=== PATIENT | female | born 1935 | race African-American/Black ===

== ENCOUNTER 2019-06-08 12:16 | Emergency (ER) | payer MEDICARE, OTHER ==
[~2019-06-08] VITALS: Ht 167.6 cm; Wt 94.3 kg
[2019-06-08 12:21] VITALS: BP 158/74
--- NOTE | 2019-06-08 12:22 | NUR ---
ED Nurse Note:pt. was BIBA from home with c/o near syncopal episode and dizziness, no fall reported pt. has bradycardia on arrival, placed on night monitor
--- NOTE | 2019-06-08 12:52 | Emergency Room Report ---
History of Present Illness General Chief Complaint: Syncope Source: Patient, Medical Record Present Illness HPI 84-year-old female history of atrial fibrillation on anticoagulation presents with presyncopal-like symptoms, patient was found on the floor of her house, she felt very weak, no proceeding symptoms, no chest pain or shortness of breath , patient never lost consciousness however she felt lightheaded, unknown aggravating relieving factors severity was severe, symptoms lasted 30 minutes patient presents for evaluation Allergies: Coded Allergies: No Known Allergies (Unverified , 06/08/19) Patient History Past Medical History: see triage record Now: No Reviewed Nursing Documentation: PMH: Agreed; PSxH: Agreed Nursing Documentation-PMH Past Medical History: No History, Except For Hx Hypertension: Yes Review of Systems All Other Systems: negative except mentioned in HPI Physical Exam Vital Signs Date Time Temp Pulse Resp B/P (MAP) Pulse Ox O2 Delivery O2 Flow Rate FiO2 06/08/19 12:12 97.5 56 16 144/86 (105) 98 Room Air Sp02 EP Interpretation: reviewed, normal General Appearance: well appearing, no apparent distress, alert Head: normocephalic, atraumatic Eyes: bilateral eye PERRL, bilateral eye EOMI ENT: uvula midline, moist mucus membranes Neck: supple, thyroid normal, supple/symm/no masses Respiratory: lungs clear, no respiratory distress, no retraction, no accessory muscle use Cardiovascular #1: normal peripheral pulses, no edema, no gallop, no murmur, irregularly irregular Gastrointestinal: non tender, soft, no guarding, no rebound Musculoskeletal: normal inspection Neurologic: alert, oriented x3 Psychiatric: mood/affect normal Skin: no rash, warm/dry Medical Decision Making Diagnostic Impression: Primary Impression: Syncope Qualified Codes: R55 - Syncope and collapse ER Course 84-year-old female presents with syncope-like symptoms, patient was found down for 30 minutes, patient was unable to get up. differential diagnosis includes cardiogenic syncope, neurogenic, electrolyte abnormality Patient found to have a heart rate that would dip down to the 40s, Patient was accepted for transfer to [facility] Dr. Odell accepted 2:42pm Laboratory Tests Test 06/08/19 12:40 White Blood Count 3.9 K/UL (4.8-10.8) L Red Blood Count 4.58 M/UL (4.20-5.40) Hemoglobin 13.7 G/DL (12.0-16.0) Hematocrit 41.1 % (37.0-47.0) Mean Corpuscular Volume 90 FL (80-99) Mean Corpuscular Hemoglobin 29.9 PG (27.0-31.0) Mean Corpuscular Hemoglobin Concent 33.3 G/DL (32.0-36.0) Red Cell Distribution Width 12.7 % (11.6-14.8) Platelet Count 158 K/UL (150-450) Mean Platelet Volume 7.9 FL (6.5-10.1) Neutrophils (%) (Auto) 58.2 % (45.0-75.0) Lymphocytes (%) (Auto) 28.5 % (20.0-45.0) Monocytes (%) (Auto) 11.6 % (1.0-10.0) H Eosinophils (%) (Auto) 0.8 % (0.0-3.0) Basophils (%) (Auto) 1.0 % (0.0-2.0) Prothrombin Time 19.2 SEC (9.30-11.50) H Prothrombin Time INR 1.9 (0.9-1.1) H PTT 34 SEC (23-33) H Urine Color Pale yellow Urine Appearance Clear Urine pH 5 (4.5-8.0) Urine Specific [place] 1.010 (1.005-1.035) Urine Protein 3+ (NEGATIVE) H Urine Glucose (UA) Negative (NEGATIVE) Urine Ketones Negative (NEGATIVE) Urine Blood Negative (NEGATIVE) Urine Nitrite Negative (NEGATIVE) Urine Bilirubin Negative (NEGATIVE) Urine Urobilinogen Normal MG/DL (0.0-1.0) Urine Leukocyte Esterase Negative (NEGATIVE) Urine RBC 0-2 /HPF (0 - 2) Urine WBC 0-2 /HPF (0 - 2) Urine Squamous Epithelial Cells Occasional /LPF Urine Amorphous Sediment Few /LPF (NONE) H Urine Bacteria Occasional /HPF (NONE) Sodium Level 138 MMOL/L (136-145) Potassium Level 4.1 MMOL/L (3.5-5.1) Chloride Level 103 MMOL/L (98-107) Carbon Dioxide Level 26 MMOL/L (21-32) Anion Gap 9 mmol/L (5-15) Blood Urea Nitrogen 22 mg/dL (7-18) H Creatinine 2.0 MG/DL (0.55-1.30) H Estimate Glomerular Filtration Rate mL/min (>60) Glucose Level 91 MG/DL (74-106) Calcium Level 8.0 MG/DL (8.5-10.1) L Total Bilirubin 0.4 MG/DL (0.2-1.0) Aspartate Amino Transferase (AST) 22 U/L (15-37) Alanine Aminotransferase (ALT) 16 U/L (12-78) Alkaline Phosphatase 84 U/L (46-116) Troponin I 0.000 ng/mL (0.000-0.056) Pro-B-Type Natriuretic Peptide 1144 pg/mL (0-125) H Total Protein 7.1 G/DL (6.4-8.2) Albumin 3.5 G/DL (3.4-5.0) Globulin 3.6 g/dL Albumin/Globulin Ratio 1.0 (1.0-2.7) Lipase 142 U/L (73-393) Urine Opiates Screen Negative (NEGATIVE) Urine Barbiturates Screen Negative (NEGATIVE) Phencyclidine (PCP) Screen Negative (NEGATIVE) Urine Amphetamines Screen Negative (NEGATIVE) Urine Benzodiazepines Screen Negative (NEGATIVE) Urine Cocaine Screen Negative (NEGATIVE) Urine Marijuana (THC) Screen Negative (NEGATIVE) EKG Diagnostic Results EKG Time: 12:18 EP Interpretation: A. fib, rate 50, QTc 443, no acute ST elevations, left axis deviation Rhythm Strip Diag. Results Rhythm Strip Time: 12:52 EP Interpretation: yes Rate: 55 Rhythm: other - Atrial fibrillation Chest X-Ray Diagnostic Results Chest X-Ray Diagnostic Results : Chest X-Ray Ordered: Yes # of Views/Limited/Complete: 1 View Indication: Other - Syncope EP Interpretation: Yes Interpretation: no consolidation, no effusion, no pneumothorax, no acute cardiopulmonary disease Impression: No acute disease Electronically Signed by: Mingo Rodriguez MD CT/MRI/US Diagnostic Results CT/MRI/US Diagnostic Results : Impression Procedure: CT Head no Contrast Indication: Headache. Presyncope. Dizziness lightheadedness Technique: Contiguous 5 mm thick transaxial imaging of the head obtained in a Siemens Sensation [address] scanner. Soft tissue and bone windows generated. Automatic Exposure Control was utilized. Total Dose length Product (DLP): [address] Dose Index Volume (CTDIvol): 60 mGy Comparison: none Findings: There is mild prominence of the ventricles, basal cisterns, and cerebral sulci consistent with atrophy. Mild, nonspecific, white matter hypoattenuation is noted throughout the brain consistent with chronic small vessel disease. There is no midline shift, edema, acute hemorrhage, mass effect, or abnormal extra-axial fluid collections. Bones are unremarkable. Impression: No acute intracranial bleed, mass effect or edema. Mild atrophy of the brain. Nonspecific white matter hypoattenuation probably due to chronic small vessel disease. Note: Study is degraded by technical artifact The CT scanner at [facility] is accredited by the [employer] and the scans are performed using dose optimization techniques as appropriate to a performed exam including Automatic Exposure control. Dictated By: Rizwan Garner MD Electronically Signed By: Rizwan Garner MD Signed Date/Time 06/08/19 1340 CC: Mingo Rodriguez MD Last Vital Signs Date Time Temp Pulse Resp B/P (MAP) Pulse Ox O2 Delivery O2 Flow Rate FiO2 06/08/19 12:21 97.5 50 16 158/74 98 Room Air Disposition: XFER SHT-TRM [facility] Condition: Stable Mingo Rodriguez MD Jun 08, 2019 12:52
[2019-06-08 13:00] LABS: APPEARANCE,URINE CLEAR; BILIRUBIN, URINE NEGATIVE (NEGATIVE); COLOR,URINE PALE YELLOW; GLUCOSE, URINE (UA) NEGATIVE (NEGATIVE); KETONES,URINE NEGATIVE (NEGATIVE); LEUKOCYTE ESTERASE ,URINE NEGATIVE (NEGATIVE); NITRITE,URINE NEGATIVE (NEGATIVE); PH,URINE 5 (4.5-8.0); PROTEIN,URINE 3+ (NEGATIVE); UROBILINOGEN,URINE NORMAL MG/DL (0.0-1.0)
[2019-06-08 13:07] LABS: ANION GAP 9 mmol/L (5-15); BLOOD UREA NITROGEN 22 mg/dL (7-18); CARBON DIOXIDE 26 MMOL/L (21-32); CHLORIDE 103 MMOL/L (98-107); EOSINOPHILS % (AUTO) 0.8 % (0.0-3.0); HEMATOCRIT 41.1 % (37.0-47.0); HEMOGLOBIN 13.7 G/DL (12.0-16.0); LYMPHOCYTES % (AUTO) 28.5 % (20.0-45.0); MEAN CORPUSCULAR VOLUME 90 FL (80-99); MONOCYTES % (AUTO) 11.6 % (1.0-10.0); NEUTROPHILS % (AUTO) 58.2 % (45.0-75.0); PLATELET COUNT 158 K/UL (150-450); POTASSIUM 4.1 MMOL/L (3.5-5.1); RED BLOOD COUNT 4.58 M/UL (4.20-5.40); RED CELL DISTRIBUTION WIDTH 12.7 % (11.6-14.8); SODIUM 138 MMOL/L (136-145); WHITE BLOOD COUNT 3.9 K/UL (4.8-10.8)
[2019-06-08 13:11] LABS: INR 1.9 (0.9-1.1)
--- NOTE | 2019-06-08 13:12 | NUR ---
ED Nurse Note: Family member will bring medication list from home. Patient recalls that she is taking Synthroid, Losartan and mord meds.
--- NOTE | 2019-06-08 13:15 | NUR ---
ED Nurse Note: patient taken to CT.
[2019-06-08] MEDS ORDERED: LOSARTAN POTAS100 MG ORAL (13:20)
[2019-06-08] MEDS ORDERED: SYNTHROID100 MCG ORAL (13:20)
[2019-06-08] MEDS ORDERED: CALCIUM600 M1 PO (13:20)
[2019-06-08] MEDS ORDERED: WARFARIN SODIUM5 MG ORAL (13:20)
[2019-06-08] MEDS ORDERED: FLONASE1 SPRAYS NASAL (13:20)
[2019-06-08] MEDS ORDERED: MAGNESIUM OXID400 M1 ORAL (13:20)
[2019-06-08] MEDS ORDERED: AMLODIPINE BESY10 MG ORAL (13:20)
[2019-06-08] MEDS ORDERED: PRAVASTATIN SOD10 M1 ORAL (13:20)
[2019-06-08] MEDS ORDERED: CALCIUM 500 MG1 EAC2 PO (13:20)
[2019-06-08] MEDS ORDERED: SYMBICORT 1601 PUFFS INH (13:20)
[2019-06-08] MEDS ORDERED: HYDRALAZINE HC100 MG ORAL (13:20)
[2019-06-08 13:23] LABS: ALANINE AMINOTRANSFERASE 16 U/L (12-78); ALBUMIN 3.5 G/DL (3.4-5.0); ALKALINE PHOSPHATASE 84 U/L (46-116); ASPARTATE AMINO TRANSFERASE 22 U/L (15-37); BILIRUBIN,TOTAL 0.4 MG/DL (0.2-1.0)
--- NOTE | 2019-06-08 13:25 | NUR ---
ED Nurse Note: patient came back from CT scan.
--- NOTE | 2019-06-08 13:46 | Diagnostic Imaging Report ---
Indication: Headache. Presyncope. Dizziness lightheadedness Technique: Contiguous 5 mm thick transaxial imaging of the head obtained in a Siemens Sensation [address] scanner. Soft tissue and bone windows generated. Automatic Exposure Control was utilized. Total Dose length Product (DLP): [address] Dose Index Volume (CTDIvol): 60 mGy Comparison: none Findings: There is mild prominence of the ventricles, basal cisterns, and cerebral sulci consistent with atrophy. Mild, nonspecific, white matter hypoattenuation is noted throughout the brain consistent with chronic small vessel disease. There is no midline shift, edema, acute hemorrhage, mass effect, or abnormal extra-axial fluid collections. Bones are unremarkable. Impression: No acute intracranial bleed, mass effect or edema. Mild atrophy of the brain. Nonspecific white matter hypoattenuation probably due to chronic small vessel disease. Note: Study is degraded by technical artifact The CT scanner at [facility] is accredited by the [employer] and the scans are performed using dose optimization techniques as appropriate to a performed exam including Automatic Exposure control.
[2019-06-08] MEDS ORDERED: Metoclopramide 10mg/2ml Inj IVP ONE (14:30)
--- NOTE | 2019-06-08 14:31 | Diagnostic Imaging Report ---
Indication: Dyspnea Comparison: None A single view chest radiograph was obtained. Findings: No definite infiltrate or pulmonary vascular congestion identified. The heart is enlarged. The aorta is mildly enlarged consistent with atherosclerotic vascular disease. The bones are osteopenic. Impression: No acute disease
--- NOTE | 2019-06-08 15:12 | NUR ---
ED Nurse Note: report given to Amie RN, endorsed all plan of care to Amie RN.
[2019-06-08 15:14] VITALS: BP 150/83
--- NOTE | 2019-06-08 15:19 | NUR ---
HAND-OFF: Report given to Sunita HODGES. family at bedside. .
--- NOTE | 2019-06-08 17:05 | NUR ---
ED Nurse Note: Report given to [place] at [facility].
[2019-06-08 17:10] VITALS: BP 163/93
[2019-06-08 17:23] VITALS: BP 163/93
--- NOTE | 2019-06-08 17:24 | NUR ---
ED Nurse Note:pt. was picked up by ambulance for transfer to other hospital
== END 2019-06-08 17:25 | disposition short-term general hospital (02) ==
LOC: EDBD 12:16 → EMR 13:05
DX: R55 Syncope and collapse (principal); I10 Essential (primary) hypertension; G31.9 Degenerative disease of nervous system, unspecified; R51 Headache; I48.91 Unspecified atrial fibrillation; Z79.01 Long term (current) use of anticoagulants
CPT/HCPCS: 36415; 70450; 71045; 80053; 80307; 81003; 83690; 83880; 84484; 85025; 85610; 85730; 93005; 96374; 99284